=== PATIENT | female | born 1980 | race Caucasian/White ===

== ENCOUNTER → 2018-09-25 | Outpatient (CLI) | payer OTHER | LOC: LAB 08:35 | DX: N30.91 Cystitis, unspecified with hematuria (principal); R30.0 Dysuria ==

== ENCOUNTER 2018-12-02 17:58 | Emergency (ER) | payer OTHER ==
[~2018-12-02] VITALS: Ht 157.5 cm; Wt 84.5 kg
[2018-12-02 18:58] VITALS: BP 112/77
[2018-12-02] MEDS ORDERED: ZYRTEC10 M3 PO (19:05)
[2018-12-02] MEDS ORDERED: ADVAIR DISKUS1 DS2 IH (19:05)
[2018-12-02] MEDS ORDERED: RT ALBUTEROL CC18 GM IH (19:05)
== END 2018-12-02 21:00 | disposition left against medical advice (07) ==
LOC: ED 17:58
DX: H92.03 Otalgia, bilateral (principal)

== ENCOUNTER → 2019-07-23 | Outpatient (CLI) | payer OTHER ==
[~2019-07-23] MED LIST: ADVAIR DISKUS1 DS2 IH; RT ALBUTEROL CC18 GM IH; ZYRTEC10 M3 PO
[2019-07-23 10:04] LABS: EOS # 0.1 (0.04-0.40); EOS % 1.4 % (1.0-5.0); HEMATOCRIT 45.1 % (37.0-47.0); HEMOGLOBIN 14.8 g/dL (12.5-16.0); LYMPH# 2.5 (1.50-4.00); MEAN CELL VOLUME 93 fl (78-100); MEAN CORPUSCULAR HEMOGLOBIN 30 pg (27-31); MEAN CORPUSCULAR HGB CONC 33 g/dL (33-37); MEAN PLATELET VOLUME 10.1 fl (7.4-10.4); MONO # 0.4 (0.20-0.80); NEU # 5.1 (1.40-6.50); PLATELET COUNT 253 K/mm3 (130-400); RED BLOOD COUNT 4.87 M/mm3 (4.10-5.30); RED CELL DISTRIBUTION WIDTH 13.1 % (11.5-14.5); WHITE BLOOD COUNT 8.1 K/mm3 (4.8-10.8)
[2019-07-23 11:03] LABS: ALBUMIN 4.8 g/dL (3.5-5.0); POTASSIUM 3.8 mmol/L (3.5-5.1)
[2019-07-23 11:05] LABS: CALCIUM 9.5 mg/dL (8.3-10.5)
[2019-07-23 11:06] LABS: TOTAL PROTEIN 8.6 g/dL (6.4-8.3)
[2019-07-23 11:08] LABS: TOTAL BILIRUBIN 0.6 mg/dL (0.2-1.2)
== END ==
LOC: LAB 09:55
PROVIDERS: Nurse Practitioner Family
DX: R10.30 Lower abdominal pain, unspecified (principal)